=== PATIENT | male | born 1990 | race American Indian/Alaskan Native ===

== ENCOUNTER 2021-01-24 09:22 | Emergency (ER) | payer SELFPAY ==
[2021-01-24 09:28] VITALS: BP 122/76
[2021-01-24] MEDS ORDERED: IBUPROFEN 600 MG TAB PO ONE (09:45)
--- NOTE | 2021-01-24 09:50 | Emergency Department Report ---
HPI - General Chief Complaint: Nausea/Vomiting/Diarrhea Time Seen by Provider: 01/24/21 09:44 - HPI HPI: 30-year-old -[place] male presents to the emergency department with complaint of a 6-day history of generalized body aches and pains, including generalized back pain. He also has some intermittent head congestion and subjective fever. He denies any nausea, vomiting, shortness of breath, chest pain, cough, diarrhea. No past medical history. He denies any tobacco or illicit drug use. He is not vaccinated against COVID-19 or influenza. His significant other is currently being seen for some similar, and some different, complaints/symptoms. ED Past Medical Hx - Past Medical History Previous Medical History?: No - Surgical History Past Surgical History?: No - Medications Home Medications: Home Medications Medication Instructions Recorded Confirmed Last Taken Type Fluticasone [Flonase] 1 spray NS QDAY #1 bottle 01/24/21 Unknown Rx Ibuprofen [Motrin 600 MG tab] 600 mg PO Q8H PRN #20 tablet 01/24/21 Unknown Rx ED Review of Systems ROS: Stated complaint: FEVER,SOB,SICKNESS Other details as noted in HPI Comment: All other systems reviewed and negative Constitutional: fever (Subjective). denies: malaise Eyes: denies: eye pain, vision change ENT: congestion. denies: ear pain, throat pain Respiratory: denies: cough, shortness of breath Cardiovascular: denies: chest pain, palpitations Gastrointestinal: denies: abdominal pain, nausea, vomiting Genitourinary: denies: dysuria, discharge Musculoskeletal: back pain, myalgia. denies: joint swelling Skin: denies: rash, lesions Neurological: denies: weakness, numbness Physical Exam - Physical Exam Vital Signs: Vital Signs 01/24/21 09:25 Temperature 98.3 F Pulse Rate 60 Respiratory 16 Rate Blood Pressure 122/76 [Left] O2 Sat by Pulse 98 Oximetry Physical Exam: GENERAL: The patient is well-developed well-nourished. HENT: Normocephalic. Atraumatic. Patient has moist mucous membranes. Oropharynx is clear without tonsillar hypertrophy, erythema or exudates. No drooling or trismus. There is some boggy nasal mucosa. EYES: Extraocular motions are intact. NECK: Supple. Trachea is midline. No palpable lymphadenopathy. CHEST/LUNGS: Clear to auscultation. There is no respiratory distress noted. HEART/CARDIOVASCULAR: Regular. There is no tachycardia. There is no murmur. ABDOMEN: Abdomen is soft, nontender. Patient has normal bowel sounds. SKIN: Skin is warm and dry. NEURO: The patient is awake, alert, and oriented. The patient is cooperative. The patient has no focal neurologic deficits. Normal speech. MUSCULOSKELETAL: There is no tenderness or deformity. There is no limitation range of motion. ED Course Vital Signs 01/24/21 09:25 Temperature 98.3 F Pulse Rate 60 Respiratory 16 Rate Blood Pressure 122/76 [Left] O2 Sat by Pulse 98 Oximetry ED Medical Decision Making - Medical Decision Making This patient presents with a 6-day history of intermittent upper respiratory and head congestion, as well as some body aches. His significant other is currently here for similar symptoms. On examination the patient has some boggy nasal mucosa, but otherwise no significant signs of infection. He does not appear in any respiratory or acute distress. Overall this appears consistent with a viral syndrome. We are unable to test for COVID-19 [id number], so we discussed outpatient COVID-19 testing. Patient has been given a prescription for anti-inflammatories and Flonase nasal spray. He will follow up with primary care and will return to the ER with any worsening of symptoms or with any acute distress. Vital signs reassuring throughout his ED course. Critical Care Time: No Critical care attestation.: If time is entered above; I have spent that time in minutes in the direct care of this critically ill patient, excluding procedure time. ED Disposition Clinical Impression: Viral syndrome, Body aches, Head congestion Disposition: 01 HOME / SELF CARE / HOMELESS Is pt being admited?: No Condition: Stable Instructions: Viral Illness, Adult Additional Instructions: Please follow-up with a primary care physician in the next few days. I have given you a referral for a local primary care physician, Dr. Paula, and a primary care clinic, [facility]. Your symptoms appear consistent with a viral infection. Unfortunately, I am unable to test you for COVID-19. I recommend that you seek outpatient COVID-19 testing. This can be done at some primary care offices, some urgent cares, and there should be a listing of testing facilities through the [facility]. You can take Tylenol every 4-6 hours and ibuprofen every 6-8 hours, using dosing on the back of the bottle, as needed for any fever or discomfort. Return to the emergency department with any worsening of your symptoms, new or concerning symptoms not addressed during this current emergency department vi sit, or with any acute distress. Prescriptions: Fluticasone [Flonase] 1 spray NS QDAY #1 bottle Ibuprofen [Motrin 600 MG tab] 600 mg PO Q8H PRN #20 tablet PRN Reason: Pain , Severe (7-10) Referrals: TERESA PAULA MD [Staff Physician] - 3-5 Days [facility] [Provider Group] - 3-5 Days Time of Disposition: 09:51
== END 2021-01-24 16:04 | disposition home or self-care (01) ==
LOC: ED 09:22
DX: B34.9 Viral infection, unspecified (principal); M79.18 Myalgia, other site; R09.89 Other specified symptoms and signs involving the circulatory and respiratory systems; Z79.899 Other long term (current) drug therapy
CPT/HCPCS: 99282